=== PATIENT | female | born 1960 | race Caucasian/White ===

== ENCOUNTER 2018-08-23 18:56 | Emergency (ER) | payer MEDICAID ==
[~2018-08-23] VITALS: Ht 162.6 cm; Wt 73.5 kg
[~2018-08-23 18:56] MED LIST: ACET-787 PO; CARI350T; RANI-485 PO; [UNRECOGNIZED DRUG - CODE] PO; [UNRECOGNIZED DRUG - CODE] PO
[2018-08-23 19:05] VITALS: BP 135/78
--- NOTE | 2018-08-23 19:09 | NUR ---
PT AMBULATES TO BED 2
--- NOTE | 2018-08-23 19:30 | NUR ---
In room sitting on chair. C/o pain in right foot and denies trauma or othe injury. Neurovascular assessment to feet WNL.
[2018-08-23] MEDS ORDERED: IBUPROFEN 600 MG TAB PO ONE (20:55)
--- NOTE | 2018-08-23 21:56 | NUR ---
3 INCH LITTLE WRAP APPLIED TO PT R ANKLE. +CSM
[2018-08-23 22:12] VITALS: BP 130/75
== END 2018-08-23 22:12 | disposition home or self-care (01) ==
LOC: MED 18:56
DX: S93.601A Unspecified sprain of right foot, initial encounter (principal); F17.200 Nicotine dependence, unspecified, uncomplicated; K21.9 Gastro-esophageal reflux disease without esophagitis; Z90.49 Acquired absence of other specified parts of digestive tract; Z79.899 Other long term (current) drug therapy; X58.XXXA Exposure to other specified factors, initial encounter; Y93.01 Activity, walking, marching and hiking; Y92.89 Other specified places as the place of occurrence of the external cause; Y99.8 Other external cause status
CPT/HCPCS: 73630; 99284; Q0092

== ENCOUNTER 2018-12-13 22:48 | Emergency (ER) | payer MEDICAID ==
[~2018-12-13] VITALS: Ht 162.6 cm; Wt 74.8 kg
[~2018-12-13 22:48] MED LIST changes: -RANI-485 PO; +RANI-745 PO
[2018-12-13 23:01] VITALS: BP 144/85
--- NOTE | 2018-12-13 23:03 | NUR ---
TO LOBBY A/W BED AMBHERON NOTED
--- NOTE | 2018-12-13 23:56 | NUR ---
58/F PRESENTS TO ED, C/O DIZZINESS SINCE THIS AM. PT REPORTS WEAKNESS. PT DENIES CP, SOB, N/V. PT AOX4, GCS 15, AMBULATORY, RR EVEN AND UNLABORED. VSS, CONNECTED TO MONITOR. HX HEP C, GERD RX ZANTAC
[2018-12-14 01:34] VITALS: BP 129/59
--- NOTE | 2018-12-14 01:34 | NUR ---
Patient discharged with v/s stable. Written and verbal after care instructions given and explained. Patient alert, oriented and verbalized understanding of instructions. Ambulatory with steady gait. All questions addressed prior to discharge. ID band removed. Patient advised to follow up with PMD. Rx of MECLIZINE, CIPRO given. Patient educated on indication of medication including possible reaction and side effects. Opportunity to ask questions provided and answered.
== END 2018-12-14 01:34 | disposition home or self-care (01) ==
LOC: MED 22:48
DX: H81.10 Benign paroxysmal vertigo, unspecified ear (principal); N39.0 Urinary tract infection, site not specified; F17.210 Nicotine dependence, cigarettes, uncomplicated; K21.9 Gastro-esophageal reflux disease without esophagitis; Z98.890 Other specified postprocedural states; Z79.891 Long term (current) use of opiate analgesic; Z79.899 Other long term (current) drug therapy
CPT/HCPCS: 81002; 81025; 99283

== ENCOUNTER 2022-12-09 19:26 | Emergency (ER) | payer MEDICAID ==
[~2022-12-09] VITALS: Ht 162.6 cm; Wt 89.8 kg
[~2022-12-09 19:26] MED LIST changes: -ACET-787 PO; +HYDR-5191 PO
[2022-12-09 19:45] VITALS: BP 178/81
--- NOTE | 2022-12-09 19:48 | NUR ---
TO LOBBY A/W BED AMBULATORY
--- NOTE | 2022-12-09 20:28 | NUR ---
PT TAKEN TO RADIOLOGY
--- NOTE | 2022-12-09 20:29 | NUR ---
PT TO XRAY
--- NOTE | 2022-12-09 22:41 | NUR ---
PT TO CHAIR
[2022-12-09] MEDS ORDERED: IBUPROFEN 800 MG TAB PO ONE (23:10)
[2022-12-09] MEDS ORDERED: [UNRECOGNIZED DRUG - CODE] PO (23:44)
[2022-12-09 23:57] VITALS: BP 178/81
== END 2022-12-09 23:57 | disposition home or self-care (01) ==
LOC: MED 19:26
DX: S52.124A Nondisplaced fracture of head of right radius, initial encounter for closed fracture (principal); M25.421 Effusion, right elbow; I10 Essential (primary) hypertension; Z79.899 Other long term (current) drug therapy; W18.30XA Fall on same level, unspecified, initial encounter; Y93.89 Activity, other specified; Y92.89 Other specified places as the place of occurrence of the external cause; Y99.8 Other external cause status
CPT/HCPCS: 73080; 73110; 99284